=== PATIENT | female | born 1970 | race Caucasian/White ===

== ENCOUNTER 2023-10-26 08:07 | Emergency (ER) | payer BC, SELFPAY ==
[2023-10-26] VITALS (7 sets, daily range): BP systolic 110–147; BP diastolic 73–87; BMI 41.2
--- NOTE | 2023-10-26 08:42 | ED.GENMED ---
History of Present Illness
General
Chief Complaint: Heart Rate Problem
Source: patient
Exam Limitations: none
Time Seen by Provider: 10/26/23 08:25
Nursing documentation reviewed up to this point in time: agreed with
Travel History
Have you had any contact with someone who has COVID-19?: No
Do you have any symptoms of coronavirus? Fever > 100 degrees, chills, cough, shortness of breath, sore throat, loss of taste or smell, muscle aches, or headache?: No
History of Present Illness
History of Present Illness:
53-year-old female with past medical history of hyperlipidemia who presents to the emergency room for evaluation of palpitations in the setting of recent nonspecific symptoms over the past 2 months. Patient reports that for the past 2 months she
has been working with her primary doctor for evaluation of generalized myalgias and arthralgias, fatigue that have been ongoing. She says that she has been having drenching night sweats. She says that she has had outpatient lab work which was
nondiagnostic was told that this issue may be an autoimmune process and was referred to a welder fitter for further assessment. She says that over the past 2 nights she has had these night sweats (as has been usual recently) but also had
associated palpitations/heart racing. She says that this concerned her and so she decided she should come to the emergency room to be assessed. She denies any chest pain. Denies any shortness of breath. She denies any nausea, vomiting, diarrhea
and has not had any abdominal pain. She denies any urinary symptoms. She has not had any fevers. Denies any cough or sore throat. No recent weight loss. She is postmenopausal. She denies any other complaints today. She says that her only
medications are hydrochlorothiazide, ibuprofen as needed, multivitamin and vitamin D supplement.
Review of Systems
Review of Systems
All Other Systems: ROS reviewed and negative except as documented in HPI and ROS
Constitutional: Reports fatigue and night sweats; Denies fever, weight loss or chills
EENT: Denies sore throat or runny nose
Respiratory: Denies cough or trouble breathing
Cardiac: Reports palpitations; Denies chest pain, diaphoresis or syncope
ABD/GI: Denies abdominal pain, nausea, vomiting or diarrhea
: Denies dysuria, frequency, flank pain or bleeding
Musculoskeletal: Reports joint pain (Arthralgias) and muscle pain (Myalgias)
Neurological: Denies headache, weakness or numbness
Phy Exam
Physical Exam
Physical Exam:
General: Awake, alert, oriented x3; anxious but no acute distress
Head: Normocephalic, atraumatic
Eyes: Conjunctiva normal, sclera anicteric
Throat: Airway intact, handling secretions
Neck: Trachea midline, supple without meningismus
Lungs: Clear to auscultation bilaterally, no wheezing, rales, rhonchi
Heart: Regular rate and rhythm with no ectopy, no murmurs, gallops, or rubs appreciated
Abd: Soft, non distended, nontender
Neuro: Cranial nerves grossly intact, speech fluid
Extremities: Trace edema around the ankles bilaterally, equal pulses in all extremities
Scores
Heart Failure Risk
Heart Failure Risk Score: Not Applicable
Heart Score for Chest Pain Patients
STEMI patient?: Not applicable
Withdrawal Assessment of Alcohol
Withdrawal Assessment Completed?: Not applicable
Course
Orders/Labs/Results
Orders:
Orders
10/26/23 08:08
EKG [Electrocardiogram (*1)] Urgent
Reason for Study: Palpitations
EKG- Treatment ONCE
10/26/23 08:56
CPK [Creatine Phosphokinase] Urgent
Comprehensive Metabolic Panel Urgent
Magnesium Urgent
Influenza A+B Rapid Molecular Urgent
VIOLETTA Source: Nasal Swab
Specimen Description:
10/26/23 08:57
COVID-19 Antigen Urgent
Source: Nasal Swab
CRP [C-Reactive Protein] Urgent
Complete Blood Count/With Diff Urgent
ESR [Erythrocyte Sed Rate] Urgent
Lyme PCR, DNA [S] Urgent
Metanephrines, Plasma (free) [S] Urgent
Monotest Urgent
TSH Reflex To Free T4 Urgent
Abnormal Lab Results
10/26/23 10/26/23
08:56 08:57
Hct 36.4 L %
(37.0-47.0)
MPV 10.9 H fL
(7.4-10.4)
Abs Immat Gran (auto) 0.1 H 10^3/uL
(0-0.05)
Absolute Neuts (auto) 6.6 H 10^3/uL
(1.4-6.5)
Absolute Monos (auto) 0.9 H 10^3/uL
(0.1-0.6)
Lymphocytes % 16.3 L %
(20.5-51.1)
Eosinophils % 6.1 H %
(0-6)
ESR 43 H mm/hour
(0-20)
Glucose 111 H mg/dl
(70-99)
Alkaline Phosphatase 178 H U/L
(38-126)
C-Reactive Protein 31.50 H mg/L
(0.0-10.00)
10/26/23 08:57
10/26/23 08:56
Vital Signs
Initial and Last Documented VS:
Initial Vital Signs
Temp Pulse Resp BP Pulse Ox
36.8 C 77 18 147/87 97
10/26/23 08:09 10/26/23 08:09 10/26/23 08:09 10/26/23 08:09 10/26/23 08:09
Last Documented Vital Signs
Temp Pulse Resp BP Pulse Ox
36.8 C 68 16 117/87 97
10/26/23 08:09 10/26/23 12:00 10/26/23 12:00 10/26/23 12:00 10/26/23 08:51
MDM/Problems Addressed
Differential Diagnosis Includes:
Hyperthyroidism, cardiac dysrhythmia, anxiety/panic, myositis, PMR, fibromyalgia, pheochromocytoma, rhabdomyolysis, electrolyte derangement
MDM/Problems Addressed:
53-year-old female presents for evaluation of palpitations over the past 2 nights associated with recent nonspecific symptoms including night sweats, myalgias and arthralgias, fatigue. She has outpatient rheumatology follow-up scheduled for further
workup of these issues but with palpitations being new decided to come to the emergency room for assessment. Fortunately vital signs are within acceptable range. Physical exam as above. EKG shows sinus rhythm with no concerning changes. Plan to
place an IV will check labs including a CBC and a CMP, thyroid studies, CPK, Lyme studies. Check viral swabs and monotest. Will monitor closely reassess after the above.
Labs reviewed: CBC shows elevated eosinophils, ESR elevated. CRP also elevated. Viral swabs were negative. TSH and metanephrines pending. Patient has been here for 4 hours with no recurrence of her palpitations and persistently normal vital
signs. She already has scheduled follow-up with rheumatology and has been following with her primary doctor for the symptoms. I think at this point she is stable for discharge continue outpatient workup. She feels comfortable with this plan.
Spoke about return precautions all questions answered.
*Pulse Oximetry
Patient hypoxic: no
*EKG
Interpreted by ED Provider?: Yes
Heart Rate: 72
Rate: normal
Rhythm: sinus
[place]: normal axis
Interval: normal interval
QRS Pattern: normal QRS
Ischemia: no ischemia
*Critical Care Note
Total Time (30-74mins, 75-104mins- exclusive of procedures): Not Applicable
Data Reviewed
Review of Other/Old Records Reveals: Labs (Reviewed outpatient lab work done by PCP which patient has in hand; CBC and CMP normal last month, LDL cholesterol high, hemoglobin A1c borderline 5.8, Lyme studies negative)
Source: patient
Patient Management
Social determinants of health affecting care: Strong social support
ED Attending Note
-
Portions of this chart may have been created with voice recognition software.� Occasional wrong word or��sound alike� substitutions may have occurred due to the inherent limitations of voice recognition software.
Discharge Plan
Departure
Patient Disposition: Home (Routine Discharge)
Date of Disposition: 10/26/23
Time of Disposition: 12:40
Patient with high blood pressure during this ER visit?: No
Discharge Problem:
Myalgia, Night sweats, Palpitations
Instructions: Muscle and Bone Pain (DC), Palpitations (DC)
Referrals:
Blanca Allison PA-C [Family Provider] - Call in 1-3 days for appt
Activity Restrictions/Additional Instructions:
Thank you for visiting the Emergency Department at [facility].
1. Please schedule a follow up appointment as directed. Call first thing tomorrow morning to make an appointment.
2. If indicated, please take your medications as instructed and indicated on discharge paperwork.
3. If any of your symptoms do not improve, or persist, or become more severe within 6-12 hours, please return to the emergency department for further care.
4. Please return to the emergency department if you develop a headache, neck pain/stiffness, fever greater than 100.4F, chest pain, shortness of breath, persistent nausea, vomiting, slurred speech, difficulty walking, numbness/tingling, weakness,
signs of infection or any other symptoms that are worrisome to you.
Please call [phone] if you have any questions.
Interventions
Interventions:
*Risk Screen - Suicide Last Done: 10/26/23 08:09
*General Assessment Last Done: 10/26/23 08:51
*Neglect/Abuse Screening Last Done: 10/26/23 08:09
ED- Fall Risk Assessment Last Done: 10/26/23 08:51
*ED COVID-19 Vaccine History Last Done: 10/26/23 08:09
ED- Cardiac Assessment Last Done: 10/26/23 08:51
ED- Pulmonary Assessment Last Done: 10/26/23 08:51
[2023-10-26 09:15] LABS: % Basophils 1.2 % (0-2); % Eosinophils 6.1 % (0-6); % Immature Granulocytes 0.5 % (0-0.5); % Lymphocytes 16.3 % (20.5-51.1); % Monocytes 8.7 % (1.7-9.3); % Neutrophils 67.2 % (42.2-75.2); Absolute Basophils 0.1 10^3/uL (0-0.2); Absolute Eosinophils 0.6 10^3/uL (0-0.7); Absolute Immature Granulocytes 0.1 10^3/uL (0-0.05); Absolute Lymphocytes 1.6 10^3/uL (1.2-3.4); Absolute Monocytes 0.9 10^3/uL (0.1-0.6); Absolute Neutrophils 6.6 10^3/uL (1.4-6.5); Hematocrit 36.4 % (37.0-47.0); Hemoglobin 12.9 g/dL (12.0-16.0); Mean Corp Hgb Conc. 35.4 g/dL (33.0-37.0); Mean Corpuscular Hgb 29.9 pg (27.0-31.0); Mean Corpuscular Volume 84.5 fL (81.0-99.0); Mean Platelet Volume 10.9 fL (7.4-10.4); Nucleated Red Blood Cells % 0 %; Platelet Count 331 10^3/uL (130-400); Red Blood Cell Count 4.31 10^6/uL (4.20-5.40); Red Cell Dist. Width 11.9 % (11.5-14.5); White Blood Cell Count 9.8 10^3/uL (4.8-10.8)
[2023-10-26 09:23] LABS: Erythrocyte Sed Rate 43 mm/hour (0-20)
[2023-10-26 09:30] LABS: ALT (SGPT) 21 U/L (0-35); AST (SGOT) 27 U/L (14-36); Albumin 3.6 g/dl (3.5-5.0); Alkaline Phosphatase 178 U/L (38-126); Blood Urea Nitrogen 11 mg/dl (7-17); Carbon Dioxide 29 mmol/L (22-30); Chloride 100 mmol/L (98-107); Creatine Phosphokinase 64 U/L (30-135); Estimated Creatinine Clearance > 125 ml/min; Glucose 111 mg/dl (70-99); Potassium 3.7 mmol/L (3.5-5.1); Sodium 135 mmol/L (135-145); Total Bilirubin 0.8 mg/dl (0.2-1.3); Total Protein 6.3 g/dl (6.3-8.2); eGFR > 60.00
[2023-10-26 09:47] LABS: COVID-19 Antigen Negative (Negative)
[2023-10-26 10:18] LABS: Monotest Negative (Negative)
[2023-10-26 12:42] LABS: TSH Reflex To Free T4 1.26 uIU/ml (0.47-4.68)
[2023-10-30 07:04] LABS: Lyme Disease DNA by PCR Not Detected; Lyme Source Serum
== END 2023-10-26 13:13 | disposition home or self-care (01) ==
LOC: EMR 08:07
PROVIDERS: EMERGENCY PHYSICIAN Emergency Medicine; FAMILY PHYSICIAN Physician Assistant
DX: R00.2 Palpitations (principal)
CPT/HCPCS: 99283; 80053; 82550; 83735; 83835; 84443; 85025; 85652; 86140; 86308; 87476; 87502; 87811; 93005